=== PATIENT | male | born 1995 | race Two or more races ===

== ENCOUNTER 2022-06-07 02:21 | Emergency (ER) | payer MEDICAID ==
[~2022-06-07] VITALS: Ht 165.1 cm; Wt 56.8 kg
[2022-06-07] MEDS ORDERED: KETOROLAC TROMETH 60MG/2ML VIAL IM ONE (04:15)
[2022-06-07] MEDS ORDERED: cefTRIAXone SOD 1,000 MG VL IM ONE (04:15)
[2022-06-07] MEDS ORDERED: IBUP800T27 PO (04:22)
[2022-06-07] MEDS ORDERED: CEPH-510 PO (04:22)
[2022-06-07] MEDS ORDERED: CLIN300C8 PO (04:22)
[2022-06-07 05:30] VITALS: BP 142/92
== END 2022-06-07 07:42 | disposition home or self-care (01) ==
LOC: ER 02:21
DX: S60.552A Superficial foreign body of left hand, initial encounter (principal); L03.114 Cellulitis of left upper limb; J45.909 Unspecified asthma, uncomplicated; Z79.1 Long term (current) use of non-steroidal anti-inflammatories (NSAID); Z79.2 Long term (current) use of antibiotics; Z79.899 Other long term (current) drug therapy; X58.XXXA Exposure to other specified factors, initial encounter; Y93.89 Activity, other specified; Y92.89 Other specified places as the place of occurrence of the external cause; Y99.8 Other external cause status
CPT/HCPCS: 73130; 96372; 99283; J0696